=== PATIENT | female | born 1945 | race Asian ===

== ENCOUNTER 2017-05-29 17:16 | Inpatient (IN) | payer OTHER, MEDICARE ==
[~2017-05-29] VITALS: Ht 149.9 cm; Wt 63.3 kg
[2017-05-29 18:12] LABS: BASOPHIL % 0.9 % (0-2); PLATELET COUNT 304 x10^3mcL (130-400)
[2017-05-29 18:13] LABS: CALCIUM 9.2 mg/dL (8.5-10.1); CARBON DIOXIDE 24.2 mmol/L (21-32); POTASSIUM SERUM 3.6 mmol/L (3.5-5.1)
[2017-05-29 18:20] LABS: RED CELL DISTRIBUTION WIDTH 14.9 % (11.5-14.5)
[2017-05-29] MEDS ORDERED: CRESTOR10 M1 PO (19:26)
[2017-05-29] MEDS ORDERED: LOSARTAN POTASS50 M1 PO (19:28)
[2017-05-29] MEDS ORDERED: ALENDRONATE SOD70 M2 PO (19:28)
[2017-05-29] MEDS ORDERED: ALLOPURINOL100 MG PO (19:30)
[2017-05-29] MEDS ORDERED: METFORMIN HCL500 MG PO (19:35)
[2017-05-29] MEDS ORDERED: EXEMESTANE25 MG PO (19:35)
[2017-05-29 19:38] LABS: MAGNESIUM 1.8 mg/dL (1.8-2.4); PHOSPHOROUS 4.5 mg/dL (2.5-4.9)
[2017-05-29 19:45] LABS: T3 TOTAL 0.99 ng/mL
[2017-05-29 19:51] LABS: CHOLESTEROL/HDL RATIO 2.5
[2017-05-29 19:55] LABS: FREE T4 1.14 ng/dL (0.76-1.46)
[2017-05-29 20:05] VITALS: BP 138/77
[2017-05-29 23:49] LABS: UA SPECIFIC GRAVITY <=1.005 (1.005-1.035); microscopic required? YES; urine erythrocyte 1+ (NEGATIVE)
[2017-05-30 00:28] LABS: AMPHETAMINE QUAL UR NONE DETECTED (NEG <=1000)
[2017-05-30 06:03] VITALS: BP 112/65
[2017-05-30 09:23] LABS: BASOPHIL % 0.4 % (0-2); PLATELET COUNT 288 x10^3mcL (130-400); RED CELL DISTRIBUTION WIDTH 14.6 % (11.5-14.5)
[2017-05-30 09:32] LABS: ALBUMIN 3.6 g/dL (3.4-5.0); ALKALINE PHOSPHATASE 64 U/L (46-116); ALT/SGPT 24 U/L (14-59); AST/SGOT 20 U/L (15-37); BILIRUBIN TOTAL 0.42 mg/dL (0.20-1.00); CALCIUM 9.2 mg/dL (8.5-10.1); CARBON DIOXIDE 27.6 mmol/L (21-32); CHLORIDE SERUM 109 mmol/L (98-107); CREATININE SERUM 0.8 mg/dL (0.6-1.0); GFR1 > 60 mL/min; GLUCOSE SERUM 131 mg/dL (74-106); MAGNESIUM 1.8 mg/dL (1.8-2.4); PHOSPHOROUS 4.1 mg/dL (2.5-4.9); POTASSIUM SERUM 4.1 mmol/L (3.5-5.1); SODIUM SERUM 147 mmol/L (136-145); TOTAL PROTEIN, SERUM 6.9 g/dL (6.4-8.2)
[2017-05-30 09:50] VITALS: BP 112/68
[2017-05-30 10:15] VITALS: Ht 149.9 cm; Wt 63.3 kg
[2017-05-30 13:36] VITALS: BP 113/71
[2017-05-30 16:43] VITALS: BP 111/63
== END 2017-05-30 19:35 | disposition left against medical advice (07) | DRG 201 ==
LOC: ED 17:16 → DU 18:38
PROVIDERS: Emergency Medicine; Family Medicine Sports Medicine
DX: I47.1 Supraventricular tachycardia (principal); I21.4 Non-ST elevation (NSTEMI) myocardial infarction; N17.0 Acute kidney failure with tubular necrosis; E78.00 Pure hypercholesterolemia, unspecified; E11.65 Type 2 diabetes mellitus with hyperglycemia; Z53.21 Procedure and treatment not carried out due to patient leaving prior to being seen by health care provider; M10.9 Gout, unspecified; K21.9 Gastro-esophageal reflux disease without esophagitis; M94.0 Chondrocostal junction syndrome [Tietze]; E78.5 Hyperlipidemia, unspecified; G90.8 Other disorders of autonomic nervous system; I10 Essential (primary) hypertension; Z85.3 Personal history of malignant neoplasm of breast; Z90.11 Acquired absence of right breast and nipple
CPT/HCPCS: 83880; 84439; J0153; J0696; J1644; J7030; Q0092